=== PATIENT | male | born 1950 | race Caucasian/White ===

== ENCOUNTER → 2017-08-23 | Outpatient (CLI) | payer OTHER ==
[~2017-08-23] MED LIST: ALTACE5 MG PO; BUSPAR15 MG PO; CARBIDOPA PO; EFFEXOR25 MG PO; ENTACAPONE PO; LEVODOPA PO; REQUIP4 MG PO
== END | disposition home or self-care (01) ==
LOC: RAD 12:15
DX: J43.8 Other emphysema (principal)

== ENCOUNTER 2018-07-25 10:00 | Outpatient (CLI) | payer OTHER | END 2018-07-25 14:19 | disposition home or self-care (01) | LOC: TOM 10:00 | DX: K59.09 Other constipation (principal); D12.4 Benign neoplasm of descending colon ==

== ENCOUNTER 2024-11-13 09:34 | Outpatient (CLI) | payer OTHER | END 2024-11-13 09:37 | disposition home or self-care (01) | LOC: RAD 09:34 | DX: Z96.653 Presence of artificial knee joint, bilateral (principal) ==